=== PATIENT | male | born 1945 | race Caucasian/White ===

== ENCOUNTER 2017-11-23 18:03 | Emergency (ER) | payer MEDICARE, MEDICAID ==
[~2017-11-23] VITALS: Ht 175.3 cm; Wt 66.5 kg
[2017-11-23 18:06] VITALS: BP 102/65
[2017-11-23] MEDS ORDERED: GABA300C10 PO (18:49)
[2017-11-23] MEDS ORDERED: HYDR50TA13 PO (18:52)
[2017-11-23] MEDS ORDERED: HYDR-3240 PO (18:52)
[2017-11-23] MEDS ORDERED: CEPH-376 PO (18:52)
[2017-11-23] MEDS ORDERED: MICROFIBRILLAR COLLAGEN 1 GM TP ONE (19:29)
[2017-11-23] MEDS ORDERED: MICROFIBRILLAR COLLAGEN 70X35X1 DRESSING TP ONE (19:30)
== END 2017-11-23 20:46 | disposition home or self-care (01) ==
LOC: ED 20:35
DX: T82.838A Hemorrhage due to vascular prosthetic devices, implants and grafts, initial encounter (principal)
CPT/HCPCS: 99281; 99282